=== PATIENT | male | born 1975 | race Hispanic/Latino ===

== ENCOUNTER → 2023-04-21 15:01 | Outpatient (REF) | payer OTHER, SELFPAY ==
[2023-04-21 15:56] LABS: Urine Albumin Negative (Neg - Trace); Urine Bilirubin Negative (Negative); Urine Character Clear (Clear); Urine Color Yellow; Urine Glucose Negative (Negative); Urine Ketone Negative (Negative); Urine Leukocyte Trace (Negative); Urine Nitrite Negative (Negative); Urine Occult Blood Negative (Negative); Urine Urobilinogen Negative (Neg - 1+)
[2023-04-21 16:03] LABS: Urine Red Blood Cell None Seen /HPF (0-2); Urine Squamous Cell 0-2 /LPF (Few); Urine White Cell 0-2 /HPF (0-5)
[2023-04-21 16:22] LABS: Microalbumin, Random Urine < 0.6 mg/dl (0.6-1.7)
[2023-04-21 16:48] LABS: PSA, Total - Screen 1.42 ng/ml (0.0-4.0)
[2023-04-22 11:06] LABS: Glycohemoglobin (HgbA1c) 5.9 % (4.0-5.6)
== END ==
LOC: CLINIC 15:01
PROVIDERS: ATTENDING PHYSICIAN Internal Medicine
DX: E11.69 Type 2 diabetes mellitus with other specified complication (principal)
CPT/HCPCS: 36415; 81003; 81015; 82043; 83036; G0103

== ENCOUNTER → 2024-10-30 06:44 | Outpatient (REF) | payer OTHER, SELFPAY ==
[2024-10-30 07:33] LABS: Hematocrit 43.0 % (39.0-52.0); Hemoglobin 14.5 g/dL (13.0-18.0); Mean Corp Hgb Conc. 33.7 g/dL (33.0-37.0); Mean Corpuscular Volume 78.5 fL (80.0-94.0); Platelet Count 244 10^3/uL (130-400); Red Cell Dist. Width 14.6 % (11.5-14.5)
[2024-10-30 08:02] LABS: ALT (SGPT) 45 U/L (0-50); AST (SGOT) 36 U/L (17-59); Albumin 4.4 g/dl (3.5-5.0); Alkaline Phosphatase 74 U/L (38-126); Blood Urea Nitrogen 13 mg/dl (9-20); Calcium 9.5 mg/dl (8.4-10.2); Carbon Dioxide 29 mmol/L (22-30); Chloride 103 mmol/L (98-107); Glucose 122 mg/dl (70-99); HDL Cholesterol 47 mg/dl; LDL Cholesterol, Calculated 119 mg/dl; Potassium 4.8 mmol/L (3.5-5.1); Sodium 137 mmol/L (135-145); Total Protein 7.8 g/dl (6.3-8.2); Very Low Density Lipoprotein 32 mg/dl (0-30); eGFR > 60.00
[2024-10-30 08:05] LABS: Microalb - Urine Creatinine 103.500 mg/dl
[2024-10-30 08:20] LABS: PSA, Total - Screen 0.98 ng/ml (0.0-4.0)
[2024-10-30 08:36] LABS: Microalbumin, Random Urine < 0.6 mg/dl (0.6-1.7)
[2024-10-30 09:00] LABS: Glycohemoglobin (HgbA1c) 6.3 % (4.0-5.6)
== END ==
LOC: CLINIC 06:44
PROVIDERS: ATTENDING PHYSICIAN Nurse Practitioner Adult Health
DX: I10 Essential (primary) hypertension (principal); R73.03 Prediabetes; Z00.00 Encounter for general adult medical examination without abnormal findings
CPT/HCPCS: 36415; 80053; 80061; 82043; 82570; 83036; 84443; 85027; G0103

== ENCOUNTER → 2025-02-05 06:58 | Outpatient (REF) | payer OTHER, SELFPAY ==
[2025-02-05 08:40] LABS: Blood Urea Nitrogen 15 mg/dl (9-20); Calcium 9.7 mg/dl (8.4-10.2); Carbon Dioxide 28 mmol/L (22-30); Chloride 103 mmol/L (98-107); Glucose 107 mg/dl (70-99); Potassium 4.5 mmol/L (3.5-5.1); Sodium 139 mmol/L (135-145); eGFR > 60.00
[2025-02-05 10:06] LABS: Glycohemoglobin (HgbA1c) 6.1 % (4.0-5.9)
== END ==
LOC: REG 06:58
PROVIDERS: ATTENDING PHYSICIAN Nurse Practitioner Adult Health
DX: R73.03 Prediabetes (principal)
CPT/HCPCS: 36415; 80048; 83036